=== PATIENT | male | born 1955 | race Caucasian/White ===

== ENCOUNTER 2016-12-20 06:20 | Inpatient (IN) | payer MEDICARE, OTHER ==
[2016-12-20 05:59] LABS: BASOPHIL 0.2 % (0-2); EOSINOPHIL 2.8 % (0-5); HCT 35.8 % (42.0-52.0); HGB 11.6 g/dl (13.2-18.0); LYMPHOCYTE 9.6 % (15-48); MCH 34.2 pg (25.0-31.0); MCHC 32.4 g/dL (32.0-36.0); MCV 105.6 fL (78.0-100.0); MONOCYTE 8.3 % (0-12); MPV 11.3 fL (6.0-9.5); NEUTROPHIL 79.1 % (41-80); RBC 3.39 M/uL (4.70-6.00); RDW 17.2 % (11.5-14.0); WBC 4.7 K/uL (4.0-10.5)
[2016-12-20 06:02] LABS: PLT 72 K/uL (150-400); PTT 22.4 SECONDS (23.2-31.4)
[2016-12-20 06:10] LABS: ALBUMIN 4.2 g/dL (3.4-4.8); BILIRUBIN - TOTAL 0.8 mg/dL (0.1-1.0); CREATININE 7.1 mg/dL (0.7-1.2); GLOBULIN (CALCULATION) 2.9 g/dL (2.2-4.2); MAGNESIUM 2.35 mg/dL (1.40-2.10); POTASSIUM 3.4 mmol/L (3.5-5.1); TOTAL PROTEIN 7.1 g/dL (6.4-8.3)
[~2016-12-20 06:20] MED LIST: ADVAIR 500-501 EACH INH; AMARYL2 MG PO; ASPIRIN CHEWABL81 MG PO; ATIVAN0.5 MG PO; ATIVAN1 MG PO; CLARITIN10 MG PO; COLACE100 MG PO; COMBIVENT RESPIM4 GM INH; DILAUDID2 MG PO; FLOMAX0.4 MG PO; IMDUR 30MG TABL30 MG PO; LASIX80 MG PO; LOPRESSOR25 MG PO; MIRALAX17 GM PO; NITROQUIK SL0.4 MG SL; PLAVIX75 MG PO; PROBIOTIC1 EAC1 PO; PROTONIX 40MG T40 MG PO; SINGULAIR10 MG PO; [UNRECOGNIZED DRUG - OTHER] PO
[2016-12-20 06:28] LABS: PROTHROMBIN TIME 12.8 SECONDS (11.7-14.0)
[2016-12-20 06:30] LABS: CKMB 5.06 ng/mL (0.97-4.94); TROPONIN T 0.192 ng/mL
[2016-12-20 15:02] LABS: CKMB 30.69 ng/mL (0.97-4.94); TROPONIN T 0.99 ng/mL
[2016-12-20 20:06] LABS: CKMB 30.1 ng/mL (0.97-4.94)
[2016-12-20 20:07] LABS: TROPONIN T 1.33 ng/mL
[2016-12-21 02:08] LABS: BASOPHIL 0.4 % (0-2); EOSINOPHIL 2.5 % (0-5); HCT 34.4 % (42.0-52.0); HGB 10.8 g/dl (13.2-18.0); LYMPHOCYTE 11.3 % (15-48); MCH 33.6 pg (25.0-31.0); MCHC 31.4 g/dL (32.0-36.0); MCV 107.2 fL (78.0-100.0); MONOCYTE 9.2 % (0-12); MPV 11.1 fL (6.0-9.5); NEUTROPHIL 76.6 % (41-80); PLT 83 K/uL (150-400); RBC 3.21 M/uL (4.70-6.00); RDW 17.2 % (11.5-14.0); WBC 5.2 K/uL (4.0-10.5)
[2016-12-21 02:28] LABS: POTASSIUM 4.5 mmol/L (3.5-5.1)
[2016-12-21 02:30] LABS: CKMB 16.46 ng/mL (0.97-4.94); TROPONIN T 1.72 ng/mL
[2016-12-21 02:32] LABS: CREATININE 8.4 mg/dL (0.7-1.2)
[2016-12-21 08:59] LABS: CKMB 11.4 ng/mL (0.97-4.94)
[2016-12-21 09:00] LABS: TROPONIN T 1.37 ng/mL
[2016-12-22 04:15] LABS: HCT 37.2 % (42.0-52.0); HGB 11.4 g/dl (13.2-18.0); MCH 33.1 pg (25.0-31.0); MCHC 30.6 g/dL (32.0-36.0); MCV 108.1 fL (78.0-100.0); MPV 11.6 fL (6.0-9.5); RBC 3.44 M/uL (4.70-6.00); RDW 17.2 % (11.5-14.0); WBC 4.4 K/uL (4.0-10.5)
[2016-12-22 04:34] LABS: CREATININE 6.4 mg/dL (0.7-1.2); MAGNESIUM 2.34 mg/dL (1.40-2.10); PHOSPHORUS 6.2 mg/dL (2.7-4.5); POTASSIUM 4.1 mmol/L (3.5-5.1)
[2016-12-22 04:40] LABS: CKMB 5.46 ng/mL (0.97-4.94); TROPONIN T 1.57 ng/mL
[2016-12-22] MEDS ORDERED: NEURONTIN300 MG PO (10:05)
[2016-12-22] MEDS ORDERED: HUMULIN 70100 UNIT/1 SQ (10:11)
[2016-12-22] MEDS ORDERED: STOOL SOFTNER PO (14:04)
[2016-12-22] MEDS ORDERED: AURYXIA210 MG PO (14:04)
[2016-12-22] MEDS ORDERED: PROAMATINE5 MG PO (14:05)
[2016-12-22] MEDS ORDERED: PRAVASTATIN SOD10 MG PO (14:05)
[2016-12-22] MEDS ORDERED: VENTOLIN (2.5 MG/3 M NEB (15:56)
== END 2016-12-22 12:35 | disposition home or self-care (01) | DRG 280 ==
LOC: FER 06:20 → FICU 11:35 → FTCU 16:34 → FICU 19:31
PROVIDERS: Emergency Medicine Emergency Medical Services; Internal Medicine Cardiovascular Disease; ADMIT Internal Medicine
PROC: 5A1D00Z (ICD-10-PCS; principal; 2016-12-21)
DX: I21.4 Non-ST elevation (NSTEMI) myocardial infarction (principal); N18.6 End stage renal disease; I13.2 Hypertensive heart and chronic kidney disease with heart failure and with stage 5 chronic kidney disease, or end stage renal disease; E11.22 Type 2 diabetes mellitus with diabetic chronic kidney disease; I50.22 Chronic systolic (congestive) heart failure; I25.10 Atherosclerotic heart disease of native coronary artery without angina pectoris; I73.9 Peripheral vascular disease, unspecified; I25.5 Ischemic cardiomyopathy; E78.5 Hyperlipidemia, unspecified; Z99.2 Dependence on renal dialysis; Z95.1 Presence of aortocoronary bypass graft; Z95.810 Presence of automatic (implantable) cardiac defibrillator; Z88.0 Allergy status to penicillin; Z88.5 Allergy status to narcotic agent; Z88.8 Allergy status to other drugs, medicaments and biological substances; Z87.891 Personal history of nicotine dependence; Z82.49 Family history of ischemic heart disease and other diseases of the circulatory system; Z79.4 Long term (current) use of insulin
CPT/HCPCS: 36415; 71010; 80048; 80053; 80061; 82550; 82553; 82962; 83735; 83874; 83880; 84100; 84484; 85025; 85610; 85730; 93005; 94010; C9113; G0378; J1170; J2270; J2405

== ENCOUNTER → 2017-03-10 | Day surgery (SDC) | payer MEDICARE, OTHER ==
[~2017-03-10] VITALS: Ht 162.6 cm; Wt 84.0 kg
[~2017-03-10] MED LIST changes: +AURYXIA210 MG PO; +HUMULIN 70100 UNIT/1 SQ; +NEURONTIN300 MG PO; +PRAVASTATIN SOD10 MG PO; +PROAMATINE5 MG PO; +STOOL SOFTNER PO; +VENTOLIN (2.5 MG/3 M NEB
[2017-03-10 08:22] LABS: POTASSIUM 4.4 mmol/L (3.5-5.1)
[2017-03-10 08:27] LABS: INR 1.2 (0.9-1.2); PROTHROMBIN TIME 14.8 SECONDS (11.7-14.0); PTT 35.4 SECONDS (23.2-31.4)
[2017-03-10 08:31] LABS: CREATININE 8.9 mg/dL (0.7-1.2)
== END | disposition home or self-care (01) ==
LOC: FAS 06:22
PROVIDERS: Surgery
DX: C44.612 Basal cell carcinoma of skin of right upper limb, including shoulder (principal); I12.0 Hypertensive chronic kidney disease with stage 5 chronic kidney disease or end stage renal disease; E10.22 Type 1 diabetes mellitus with diabetic chronic kidney disease; N18.6 End stage renal disease; Z99.2 Dependence on renal dialysis; Z79.4 Long term (current) use of insulin; K21.9 Gastro-esophageal reflux disease without esophagitis; I25.2 Old myocardial infarction; I25.10 Atherosclerotic heart disease of native coronary artery without angina pectoris; Z95.1 Presence of aortocoronary bypass graft; Z95.5 Presence of coronary angioplasty implant and graft; Z95.810 Presence of automatic (implantable) cardiac defibrillator; Z86.73 Personal history of transient ischemic attack (TIA), and cerebral infarction without residual deficits; J44.9 Chronic obstructive pulmonary disease, unspecified; N40.0 Benign prostatic hyperplasia without lower urinary tract symptoms; N39.0 Urinary tract infection, site not specified; E78.00 Pure hypercholesterolemia, unspecified; F41.9 Anxiety disorder, unspecified; Z79.01 Long term (current) use of anticoagulants; M19.90 Unspecified osteoarthritis, unspecified site; G47.30 Sleep apnea, unspecified; Z90.49 Acquired absence of other specified parts of digestive tract; Z88.0 Allergy status to penicillin; Z88.5 Allergy status to narcotic agent; Z88.8 Allergy status to other drugs, medicaments and biological substances; Z91.041 Radiographic dye allergy status; Z87.891 Personal history of nicotine dependence
CPT/HCPCS: 36415; 36600; 71010; 80048; 80053; 82803; 84484; 85025; 85610; 85730; 88305; 93005; 94640; J0690; J2704; J3010

== ENCOUNTER 2017-06-11 12:59 | Emergency (ER) | payer MEDICARE, OTHER | END 2017-06-11 14:57 | disposition home or self-care (01) | LOC: FER 12:59 | DX: S31.010A Laceration without foreign body of lower back and pelvis without penetration into retroperitoneum, initial encounter (principal); S40.811A Abrasion of right upper arm, initial encounter; B02.9 Zoster without complications; I12.0 Hypertensive chronic kidney disease with stage 5 chronic kidney disease or end stage renal disease; E11.22 Type 2 diabetes mellitus with diabetic chronic kidney disease; N18.6 End stage renal disease; E78.5 Hyperlipidemia, unspecified; E03.9 Hypothyroidism, unspecified; W18.30XA Fall on same level, unspecified, initial encounter; Y92.002 Bathroom of unspecified non-institutional (private) residence as the place of occurrence of the external cause; Z79.82 Long term (current) use of aspirin; Z79.02 Long term (current) use of antithrombotics/antiplatelets; Z79.899 Other long term (current) drug therapy; Z79.84 Long term (current) use of oral hypoglycemic drugs | CPT/HCPCS: 99283 ==